=== PATIENT | male | born 1990 | race Two or more races ===

== ENCOUNTER → 2022-02-19 | Outpatient (CLI) | payer BC ==
[2022-02-19 07:42] LABS: Basophils # (auto) 0.1 10 ^3/uL (0-0.2); Basophils % (auto) 1.5 % (0.0-2.0); Eosinophils # (auto) 0.1 10 ^3/uL (0-0.8); Eosinophils % (auto) 2.3 % (0.0-7.0); Hematocrit 39.5 % (41.0-53.0); Hemoglobin 13.7 g/dL (13.5-17.5); Lymphocytes # (auto) 1.6 10 ^3/uL (0.4-5.4); Lymphocytes % (auto) 25.8 % (10.0-50.0); Mean Corpuscular Hemoglobin 30.8 pg (28.0-32.0); Mean Corpuscular Hgb Conc. 34.7 g/dL (32.0-36.0); Mean Corpuscular Volume 88.5 fL (80.0-100.0); Monocytes # (auto) 0.3 10 ^3/uL (0-1.3); Monocytes % (auto) 5.4 % (0.0-12.0); Neutrophils # (auto) 4.1 10 ^3/uL (1.6-8.6); Nucleated Red Blood Cells % 0.1 %; Red Blood Cells 4.46 10^6/uL (4.5-5.90); Red Cell Distribution Width 14.1 % (11.8-14.3); White Blood Cell 6.3 10^3/uL (4.4-10.8)
[2022-02-19 08:17] LABS: Albumin 3.8 g/dL (3.4-5.0); Calcium 8.5 mg/dL (8.5-10.1); Potassium 3.9 mmol/L (3.5-5.1)
[2022-02-19 08:21] LABS: BUN/Creatinine Ratio 9.5; Total Protein 7.4 g/dL (6.4-8.2)
== END | disposition home or self-care (01) ==
LOC: LAB 07:23
PROVIDERS: ATTEND Nurse Practitioner Family
DX: I51.7 Cardiomegaly (principal); Z92.89 Personal history of other medical treatment
CPT/HCPCS: 36415; 80053; 82607; 85025; 85652

== ENCOUNTER 2022-12-18 09:49 | Emergency (ER) | payer BC ==
[~2022-12-18] VITALS: Ht 162.6 cm; Wt 69.4 kg
[2022-12-18 10:00] VITALS: BP 118/90
[2022-12-18] MEDS ORDERED: HYDROcodone-ACET 5/325MG TAB PO ONE (11:15)
[2022-12-18] MEDS ORDERED: HUR60 MT (11:25)
[2022-12-18] MEDS ORDERED: CLIN300C70 PO (11:25)
== END 2022-12-18 11:31 | disposition home or self-care (01) ==
LOC: ER 09:49
DX: K04.7 Periapical abscess without sinus (principal)

== ENCOUNTER → 2024-04-20 | Outpatient (CLI) | payer BC ==
[~2024-04-20] MED LIST: CLIN1CAP70 PO; HUR60 MT
[2024-04-20 07:26] LABS: Basophils # (auto) 0 10 ^3/uL (0-0.2); Basophils % (auto) 0.8 % (0.0-2.0); Eosinophils # (auto) 0.1 10 ^3/uL (0-0.8); Eosinophils % (auto) 2.4 % (0.0-7.0); Hematocrit 44.6 % (41.0-53.0); Hemoglobin 15.5 g/dL (13.5-17.5); Lymphocytes # (auto) 1.8 10 ^3/uL (0.4-5.4); Lymphocytes % (auto) 34.8 % (10.0-50.0); Mean Corpuscular Hemoglobin 31.7 pg (28.0-32.0); Mean Corpuscular Hgb Conc. 34.7 g/dL (32.0-36.0); Mean Corpuscular Volume 91.3 fL (80.0-100.0); Monocytes # (auto) 0.4 10 ^3/uL (0-1.3); Monocytes % (auto) 7.3 % (0.0-12.0); Neutrophils # (auto) 2.8 10 ^3/uL (1.6-8.6); Neutrophils % (auto) 54.7 % (37.0-80.0); Platelet Count (auto) 223 10^3/uL (140-450); Red Blood Cells 4.88 10^6/uL (4.5-5.90); Red Cell Distribution Width 13.7 % (11.8-14.3); White Blood Cell 5.1 10^3/uL (4.4-10.8)
[2024-04-20 07:51] LABS: Alanine Aminotransferase 31 U/L (7-40); Albumin 4.4 g/dL (3.2-4.8); Alkaline Phosphatase 114 U/L (46-116); Anion Gap 6 (5-15); Aspartate Aminotransferase 23 U/L (13-40); BUN/Creatinine Ratio 14.8 (10.0-20.0); Blood Urea Nitrogen 12 mg/dL (9-23); Calcium 9.4 mg/dL (8.7-10.4); Carbon Dioxide 27 mmol/L (20-31); Chloride 109 mmol/L (98-107); Cholesterol 147 mg/dL (< 200); Glucose 94 mg/dL (74-106); LDL Cholesterol 104 mg/dL (< 100); Sodium 142 mmol/L (136-145); Triglycerides 107 mg/dL (< 150)
[2024-04-20 07:52] LABS: Bilirubin, Total 1.2 mg/dL (0.2-1.0); HDL Cholesterol 39 mg/dL (40-59); Total Protein 7.2 g/dL (5.7-8.2)
== END | disposition home or self-care (01) ==
LOC: LAB 06:52
PROVIDERS: ATTEND Nurse Practitioner Family
DX: I51.7 Cardiomegaly (principal)
CPT/HCPCS: 36415; 80053; 80061; 85025

== ENCOUNTER → 2025-04-04 | Outpatient (CLI) | payer BC, OTHER ==
[2025-04-05 10:53] LABS: Hepatitis B Surface Antigen Negative (Negative)
== END | disposition home or self-care (01) ==
LOC: LAB 15:18
PROVIDERS: ATTEND Nurse Practitioner
DX: Z77.21 Contact with and (suspected) exposure to potentially hazardous body fluids (principal)
CPT/HCPCS: 36415; 86703; 86706; 86803; 87340

== ENCOUNTER 2025-04-30 12:41 | Outpatient (CLI) | payer OTHER ==
[2025-05-01 10:04] LABS: Hepatitis B Surface Antigen Negative (Negative)
== END 2025-04-30 17:00 | disposition home or self-care (01) ==
LOC: LAB 12:41
PROVIDERS: ATTEND Nurse Practitioner
DX: Z77.21 Contact with and (suspected) exposure to potentially hazardous body fluids (principal)
CPT/HCPCS: 36415; 86703; 86706; 86803; 87340

== ENCOUNTER 2025-07-02 04:04 | Emergency (ER) | payer BC, OTHER ==
[~2025-07-02] VITALS: Ht 162.6 cm; Wt 70.0 kg
[2025-07-02] MEDS: LORazepam 2MG/ML-1ML VIAL IM ONE (04:42)
[2025-07-02 04:52] VITALS: RESP 24; O2SAT 98
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
[2025-07-02 05:10] LABS: Hematocrit 48.3 % (41.0-53.0); Hemoglobin 16.5 g/dL (13.5-17.5); Mean Corpuscular Hemoglobin 30.8 pg (28.0-32.0); Mean Corpuscular Volume 90.2 fL (80.0-100.0); Nucleated Red Blood Cells % 0.1 %
[2025-07-02 05:31] LABS: Albumin 4.7 g/dL (3.2-4.8); Anion Gap 17 (5-15); BUN/Creatinine Ratio 12.7 (10.0-20.0); Blood Urea Nitrogen 10 mg/dL (9-23); Calcium 9.6 mg/dL (8.7-10.4); Chloride 106 mmol/L (98-107); Glucose 100 mg/dL (74-106); Magnesium 2.1 mg/dL (1.6-2.6); Potassium 3.5 mmol/L (3.5-5.1); Sodium 143 mmol/L (136-145); Total Protein 7.8 g/dL (5.7-8.2)
[2025-07-02 05:32] LABS: Alanine Aminotransferase 50 U/L (7-40); Alkaline Phosphatase 131 U/L (46-116); Bilirubin, Total 1.1 mg/dL (0.2-1.0); Carbon Dioxide 20 mmol/L (20-31); Creatine Kinase IFCC 216 U/L (46-171)
[2025-07-02 06:29] VITALS: BP 110/74; PULSE 80; RESP 20; TEMP 98.6; O2SAT 99
--- NOTE | 2025-07-02 23:34 | ECG ---
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
== END 2025-07-02 06:34 | disposition home or self-care (01) ==
LOC: EEVIPCON 04:04 → ER 04:04
DX: F43.9 Reaction to severe stress, unspecified (principal); K04.7 Periapical abscess without sinus; F41.9 Anxiety disorder, unspecified; R07.89 Other chest pain
CPT/HCPCS: 36415; 80053; 82550; 82553; 83735; 85025; 93005; 96372; 99284; J2060